=== PATIENT | male | born 1965 | race Two or more races ===

== ENCOUNTER 2017-01-08 11:07 | Emergency (ER) | payer OTHER ==
[~2017-01-08] VITALS: Ht 193 cm; Wt 65.8 kg
[2017-01-08 11:38] VITALS: BP 138/77
== END 2017-01-08 12:01 | disposition home or self-care (01) ==
LOC: ER 11:10
DX: F10.129 Alcohol abuse with intoxication, unspecified (principal)
CPT/HCPCS: 99283; A4606; Z7610

== ENCOUNTER 2017-01-28 19:12 | Emergency (ER) | payer OTHER ==
[~2017-01-28] VITALS: Ht 185.4 cm; Wt 81.6 kg
--- NOTE | 2017-01-28 20:42 | NUR ---
BB RA; "NOT FEELING WELL" ADMITS TO DRINKING ALCOHOL. PT AMBULATORY TO ER BED 8. PT AOX3 RR EVEN AND UNLABORED. NO SOB NOTED. NAD NOTED. NO NVD AT THIS TIME. PT NOT DIAPHORETIC. PT GOWNED AND PLACED ON MONTIOR.
--- NOTE | 2017-01-28 21:28 | NUR ---
LAB AT BEDSIDE FOR BLOOD DRAW.
[2017-01-28] MEDS ORDERED: THIAMINE HCL 100 MG TABLET PO ONE (21:30)
[2017-01-28] MEDS ORDERED: IV NS 0.9% 500 ML BAG IV ONE (21:30)
[2017-01-28 21:34] LABS: BASOPHILS # (AUTO) 0.1 /CMM (0.0-0.2); HEMATOCRIT 37 % (39-51); HEMOGLOBIN 12.1 g/dL (13.5-17.5); LYMPHOCYTES # (AUTO) 2.2 /CMM (0.8-4.8); LYMPHOCYTES % (AUTO) 33.3 % (20.0-44.0); MEAN CORPUSCULAR HEMOGLOBIN 32 PG (26.0-33.0); MEAN CORPUSCULAR HGB CONC 33 g/dl (31.0-36.0); MEAN CORPUSCULAR VOLUME 96 fL (80-96); MONOCYTES # (AUTO) 0.6 /CMM (0.1-1.30); NEUTROPHILS # (AUTO) 3.8 /CMM (1.8-8.9); NEUTROPHILS % (AUTO) 55.7 % (43.0-81.0); PLATELET COUNT (AUTO) 311 /CMM (150-450); RDW COEFFICIENT OF VARIATION 15.4 (11.5-15.0); WHITE BLOOD COUNT (AUTO) 6.7 K/uL (4.3-11.0)
[2017-01-28 21:45] LABS: CALCIUM, SERUM 8.8 mg/dL (8.5-10.1); CARBON DIOXIDE 29 mmol/L (21-32); CHLORIDE 100 mmol/L (98-107); GFR 78 mL/min (>60); GLUCOSE 74 mg/dL (74-106); POTASSIUM 4.2 mmol/L (3.5-5.1); SODIUM SERUM 139 mmol/L (136-145); UREA NITROGEN, BLOOD 17 mg/dL (7-18)
[2017-01-28] MEDS ORDERED: THIAMINE HCL 100 MG TABLET ONE (21:45)
[2017-01-28] MEDS ORDERED: IV NS 0.9% 500 ML IV ONE (21:45)
[2017-01-28] MEDS ORDERED: IV SET PRIMARY 1 EA INFUS.SET MC ONE (21:45)
--- NOTE | 2017-01-28 21:46 | NUR ---
PT TO CT.
[2017-01-28 21:48] LABS: INR 0.93 (0.87-1.13); PROTHROMBIN TIME 9.7 SECS (9.5-12.7)
[2017-01-28 21:52] LABS: ALANINE AMINOTRANSFERASE 20 U/L (12-78); ALBUMIN 3.7 g/dL (3.4-5.0); ALKALINE PHOSPHATASE 85 U/L (46-116); ASPARTATE AMINOTRANSFERASE 27 U/L (15-37); BILIRUBIN,DIRECT 0.1 mg/dL (0.0-0.2); BILIRUBIN,TOTAL 0.2 mg/dL (0.2-1.0); TOTAL PROTEIN, SERUM 7.2 g/dL (6.4-8.2)
[2017-01-28 21:54] LABS: TROPONIN I < 0.017 ng/mL (0.00-0.056)
--- NOTE | 2017-01-28 22:01 | NUR ---
PT RETURNED FROM CT.
[2017-01-28] MEDS ORDERED: CHLORDIAZEPOXIDE HCL 25 MG CAPSULE PO ONE (23:30)
[2017-01-28] MEDS ORDERED: CHLORDIAZEPOXIDE HCL 25 MG CAPSULE ONE (23:46)
--- NOTE | 2017-01-29 00:27 | NUR ---
Steady on his feed, able to navigate the community. Patient discharged.
[2017-01-29 00:57] VITALS: BP 140/83
--- NOTE | 2017-01-29 00:58 | NUR ---
IV removed. Catheter intact and site benign. Pressure and 4x4 applied to site. No bleeding noted. Patient discharged to home in stable condition. Written and verbal after care instructions given. Patient verbalizes understanding of instruction. ambulatory with a steady gait
== END 2017-01-29 00:59 | disposition home or self-care (01) ==
LOC: ER 19:14
DX: R07.81 Pleurodynia (principal); R51 Headache; F10.239 Alcohol dependence with withdrawal, unspecified; R79.1 Abnormal coagulation profile; Z72.0 Tobacco use; Z59.0 Homelessness; Z98.890 Other specified postprocedural states; Z86.73 Personal history of transient ischemic attack (TIA), and cerebral infarction without residual deficits
CPT/HCPCS: 36415; 70450; 71100; 80048; 80076; 83735; 84484; 85025; 85730; 93005; 96360; 99285; 99406; A4606; J7040; Z7610